=== PATIENT | male | born 1930 | race Caucasian/White ===

== ENCOUNTER 2019-04-13 08:52 | Day surgery (SDC) | payer MEDICARE ==
[2019-04-07 14:31] LABS: CLARITY,URINE CLEAR (Clear); COLOR,URINE YELLOW (Yellow); GLUCOSE, URINE NEGATIVE (Neg); KETONES,URINE NEGATIVE (Neg); LEUKOCYTE ESTERASE ,URINE NEGATIVE (Neg); NITRITES, URINE NEGATIVE (Neg); OCCULT BLOOD,URINE NEGATIVE (Neg); PH,URINE 5.5 (4.8-8.0); PROTEIN,URINE NEGATIVE (Neg); UROBILINOGEN,URINE 0.2 E.U/dL (0.2-1.0)
[2019-04-07 14:32] LABS: UA COLLECTION TYPE VOIDED
[2019-04-07 15:05] LABS: ALBUMIN 3.4 G/DL (3.4-5.0); ALBUMIN/GLOBULIN RATIO 1.1 (1.1-1.5); ALKALINE PHOSPHATASE 61 IU/L (46-116); BLOOD UREA NITROGEN 24 MG/DL (7-18); BUN/CREATININE RATIO 19.4 (5.4-32.0); CALCIUM 9.7 MG/DL (8.5-10.1); CHLORIDE 107 MMOL/L (99-107); CREATININE 1.24 MG/DL (0.60-1.10); PRE OP ALT 57 U/L (30-65); PRE OP ANION GAP 6 (8-16); PRE OP AST 24 U/L (10-37); PRE OP BILIRUB, TOTAL 0.4 MG/DL (0.0-1.0); PRE OP GLUCOSE 93 MG/DL (70-104); PRE OP POTASSIUM 4.5 MMOL/L (3.4-5.1); PRE OP SODIUM 142 MMOL/L (135-145); TOTAL CARBON DIOXIDE 28.8 MMOL/L (24-32); TOTAL PROTEIN 6.6 G/DL (6.4-8.2); eGFR 55 ML/MIN
[2019-04-07 15:06] LABS: BASOPHILS % (AUTO) 0.2 % (0-1); EOSINOPHILS % (AUTO) 0.5 % (0-6); LYMPHOCYTES # (AUTO) 1.2 X10'3 (1.1-4.8); LYMPHOCYTES % (AUTO) 23.2 % (21-51); MEAN CORPUSCULAR HEMOGLOBIN 30.3 PG (27.0-31.0); MEAN CORPUSCULAR HGB CONC 32.9 g/dL (33.0-36.5); MEAN CORPUSCULAR VOLUME 92.1 FL (78-98); MEAN PLATELET VOLUME 6.7 FL (7.4-10.4); MONOCYTES # (AUTO) 0.4 X10'3 (0-0.9); MONOCYTES % (AUTO) 7.5 % (2-12); NEUTROPHILS # (AUTO) 3.6 X10'3 (1.8-7.7); NEUTROPHILS % (AUTO) 68.6 % (42-75); PRE OP HEMATOCRIT 36.9 % (42.0-52.0); PRE OP HEMOGLOBIN 12.2 g/dL (14.0-17.9); PRE OP PLATELET COUNT 242 X10'3 (140-440); RED BLOOD COUNT 4.01 X10'6 (4.70-6.10); RED CELL DISTRIBUTION WIDTH 15.1 % (11.5-14.5)
[2019-04-07 15:14] LABS: PRE OP INR 1.1 INR; PRE OP PROTIME 10.7 SECONDS (9.0-12.0)
[~2019-04-13] VITALS: Ht 188 cm; Wt 64.8 kg
[~2019-04-13 08:52] MED LIST: APIX5TAB3 PO; CHOL10008 PO; CYAN100097 PO; DOCUMENT DATE & TIME OF BETA-BLOCKER PO ONE; DONE10TA7 PO; LEVO100T PO; METO-411 PO; MULT-1074 PO; OMEP20CA11 PO; ROSU40TA PO; SAW450CA7 PO; cefazolin/dext.iso 2gm/100 ML IV ONE; famotidine 20mg tablet PO ONE; ringers solution, lacted 1,000 ML IV SCH
[2019-04-13 09:00] VITALS: BP 165/72
[2019-04-13] MEDS ORDERED: LIDOcaine 1% 30ml preserv. free vial ONE (11:58)
[2019-04-13] MEDS ORDERED: midazolam 2 mg/2 ml injection ONE (12:28)
[2019-04-13] MEDS ORDERED: fentaNYL/PF 50MCG/1 ML 2ML syringe ONE ×2 (12:28→12:46)
[2019-04-13] MEDS ORDERED: ketamine 50mg/5ml syringe ONE (12:35)
[2019-04-13] MEDS ORDERED: propofol inj 20 ML IV ONE (13:26)
[2019-04-13] MEDS ORDERED: povidone-iodine 10% topical ointment 28.4gm TP ONE (13:27)
[2019-04-13 13:33] VITALS: BP 179/82
--- NOTE | 2019-04-13 13:33 | NUR ---
Received from OR via , accompanied by Anesthesiologist DR LUNA and report given by Anesthesiolgist. AWAKENS TO VOICE. VITALS STABLE. DRESSINGS DI. BRITTANY PAIN.
[2019-04-13 13:43] VITALS: BP 179/79
[2019-04-13 13:53] VITALS: BP 170/83
[2019-04-13 14:03] VITALS: BP 163/80
[2019-04-13 14:13] VITALS: BP 160/88
--- NOTE | 2019-04-13 14:23 | NUR ---
AWAKE AND ORIENTED. VITALS STABLE. DRESSINGS DI. BRITTANY PAIN. HOME WITH A FRIEND AT THIS TIME.
== END 2019-04-13 14:23 | disposition home or self-care (01) ==
LOC: PAS 08:52
PROVIDERS: ATTEND Surgery
DX: C44.612 Basal cell carcinoma of skin of right upper limb, including shoulder (principal); C44.41 Basal cell carcinoma of skin of scalp and neck; C44.519 Basal cell carcinoma of skin of other part of trunk; I48.91 Unspecified atrial fibrillation; F03.90 Unspecified dementia, unspecified severity, without behavioral disturbance, psychotic disturbance, mood disturbance, and anxiety; E03.9 Hypothyroidism, unspecified; Z86.73 Personal history of transient ischemic attack (TIA), and cerebral infarction without residual deficits; Z95.0 Presence of cardiac pacemaker; Z98.890 Other specified postprocedural states; Z87.891 Personal history of nicotine dependence
CPT/HCPCS: 11603; 11622; 11623; 12032; 26113; 36415; 80053; 81003; 82948; 85025; 85610; 85730; A6222; J2001; J2250; J2704; J3010; 88305; A4215; A6449; A7000; J7120